=== PATIENT | female | born 1980 | race Caucasian/White ===

== ENCOUNTER → 2018-11-10 | Outpatient (CLI) | payer OTHER ==
[~2018-11-10] MED LIST: AZIT250 PO; Bactrim Ds Tab1 EACH PO; DICL75ER PO; HYDACE5 PO; HYDROXYCUT; METF500C; MULVITMINE; Norco 5-325 Ta1 EACH PO; Percocet 5-3251 EACH PO; SILSUL1TC TOP; TRAM50 PO
== END ==
LOC: LAB SHORT 19:32 → LAB 19:32
DX: L02.811 Cutaneous abscess of head [any part, except face] (principal); L08.9 Local infection of the skin and subcutaneous tissue, unspecified
CPT/HCPCS: 87070; 87077; 87147; 87186; 87205

== ENCOUNTER → 2019-01-18 | Outpatient (CLI) | payer OTHER ==
[~2019-01-18] MED LIST changes: +Keflex500 MG PO
== END | disposition home or self-care (01) ==
LOC: LAB 11:53 → LAB SHORT 11:53
DX: L02.01 Cutaneous abscess of face (principal)
CPT/HCPCS: 87070; 87077; 87147; 87186; 87205

== ENCOUNTER 2019-01-19 17:37 | Emergency (ER) | payer OTHER ==
[~2019-01-19] VITALS: Ht 167.6 cm; Wt 72.6 kg
[~2019-01-19 17:37] MED LIST changes: -Keflex500 MG PO
[2019-01-19 18:19] LABS: BASOPHILS ABSOLUTE AUTO 0.05 K/mm3 (0.00-0.23); BASOPHILS PERCENT AUTO 0 % (0-2); EOSINOPHILS ABSOLUTE AUTO 0.39 K/mm3 (0.00-0.68); EOSINOPHILS PERCENT AUTO 2 % (0-6); Hematocrit 46.6 % (33.0-51.0); Hemoglobin 15.1 g/dL (11.5-16.0); IMMATURE GRAN ABSOLUTE AUTO 0.07 K/mm3 (0.00-0.10); IMMATURE GRAN PERCENT AUTO 0 % (0-1); LYMPHOCYTES ABSOLUTE AUTO 1.79 K/mm3 (0.84-5.20); LYMPHOCYTES PERCENT AUTO 11 % (21-46); MONOCYTES ABSOLUTE AUTO 1.19 K/mm3 (0.16-1.47); MONOCYTES PERCENT AUTO 7 % (4-13); Mean Corpuscular HGB 30.2 pg (26.0-34.0); Mean Corpuscular HGB Conc 32.4 g/dL (31.5-36.5); Mean Corpuscular Volume 93 fL (80-100); Mean Platelet Volume 8.5 fL (9.1-12.4); NEUTROPHILS ABSOLUTE AUTO 13.57 K/mm3 (1.96-9.15); NEUTROPHILS PERCENT AUTO 80 % (41-73); Platelet Count 324 K/mm3 (150-400); RDW Coefficient Variation 13.1 % (11.7-14.2); RDW Standard Deviation 44.7 fL (35.1-46.3); White Blood Cell Count 17.06 K/mm3 (4.00-11.30)
[2019-01-19 18:42] LABS: Alanine Aminotransfer (ALT/SGP 44 U/L (12-78); Albumin, Blood 3.5 g/dL (3.4-5.0); Albumin/Globulin Ratio 0.8 (0.8-1.8); Alk Phos 75 U/L (50-136); Anion Gap 6 mmol/L (6-16); Aspartate Aminotrans (AST/SGOT 24 U/L (12-37); Bilirubin, Total 0.6 mg/dL (0.1-1.0); Blood Urea Nitrogen 7 mg/dL (8-24); Bun/Creatinine Ratio 10.8 (12.0-20.0); CO2, Blood 28 mmol/L (21-32); Calcium, Blood 9.4 mg/dL (8.5-10.1); Chloride, Blood 103 mmol/L (98-108); Creatinine, Blood 0.65 mg/dL (0.40-1.00); Globulin, Blood 4.4 g/dL (2.2-4.0); Glomerular Filtration Rate >60 (60-); Glucose, Blood 97 mg/dL (70-99); Potassium, Blood 3.6 mmol/L (3.5-5.5); Sodium, Blood 137 mmol/L (136-145); Total Protein, Blood 7.9 g/dL (6.4-8.2)
[2019-01-19] MEDS ORDERED: Keflex500 MG PO (20:48)
== END 2019-01-19 20:58 | disposition home or self-care (01) ==
LOC: ER 17:37
PROVIDERS: Physician Assistant
DX: L03.211 Cellulitis of face (principal); K13.0 Diseases of lips; L08.9 Local infection of the skin and subcutaneous tissue, unspecified; F17.200 Nicotine dependence, unspecified, uncomplicated; Z88.0 Allergy status to penicillin
CPT/HCPCS: 36415; 80053; 85025; 96365; 96366; 96375; 99283-25; J1885; J2020; J2270; J2405

== ENCOUNTER 2019-03-21 04:49 | Emergency (ER) | payer OTHER ==
[~2019-03-21] VITALS: Ht 160 cm; Wt 61.2 kg
[~2019-03-21 04:49] MED LIST changes: +Keflex500 MG PO
[2019-03-21] MEDS ORDERED: CLIN300 PO (06:32)
[2019-03-21] MEDS ORDERED: IBUP600 PO (06:32)
== END 2019-03-21 07:15 | disposition home or self-care (01) ==
LOC: ER 04:49
DX: J02.9 Acute pharyngitis, unspecified (principal); H66.92 Otitis media, unspecified, left ear; F17.200 Nicotine dependence, unspecified, uncomplicated; Z88.0 Allergy status to penicillin
CPT/HCPCS: 96372; 99282-25; J1100; J1885

== ENCOUNTER 2019-03-22 12:43 | Inpatient (IN) | payer OTHER ==
[~2019-03-22] VITALS: Ht 160 cm; Wt 72.3 kg
[~2019-03-22 12:43] MED LIST changes: +CLIN300 PO; +IBUP600 PO
[2019-03-22 13:29] LABS: BASOPHILS ABSOLUTE AUTO 0.05 K/mm3 (0.00-0.23); BASOPHILS PERCENT AUTO 0 % (0-2); EOSINOPHILS ABSOLUTE AUTO 0.07 K/mm3 (0.00-0.68); EOSINOPHILS PERCENT AUTO 0 % (0-6); Hematocrit 45.4 % (33.0-51.0); Hemoglobin 15.2 g/dL (11.5-16.0); IMMATURE GRAN ABSOLUTE AUTO 0.07 K/mm3 (0.00-0.10); IMMATURE GRAN PERCENT AUTO 0 % (0-1); LYMPHOCYTES ABSOLUTE AUTO 2.39 K/mm3 (0.84-5.20); LYMPHOCYTES PERCENT AUTO 12 % (21-46); MONOCYTES ABSOLUTE AUTO 1.56 K/mm3 (0.16-1.47); MONOCYTES PERCENT AUTO 8 % (4-13); Mean Corpuscular HGB 30.3 pg (26.0-34.0); Mean Corpuscular HGB Conc 33.5 g/dL (31.5-36.5); Mean Corpuscular Volume 91 fL (80-100); Mean Platelet Volume 8.2 fL (9.1-12.4); NEUTROPHILS ABSOLUTE AUTO 15.39 K/mm3 (1.96-9.15); NEUTROPHILS PERCENT AUTO 79 % (41-73); Platelet Count 425 K/mm3 (150-400); RDW Coefficient Variation 12.3 % (11.7-14.2); RDW Standard Deviation 41.1 fL (35.1-46.3); Red Blood Cell Count 5.01 M/mm3 (3.80-5.20); White Blood Cell Count 19.53 K/mm3 (4.00-11.30)
[2019-03-22 13:47] LABS: Alanine Aminotransfer (ALT/SGP 18 U/L (12-78); Albumin, Blood 3.5 g/dL (3.4-5.0); Albumin/Globulin Ratio 0.7 (0.8-1.8); Alk Phos 86 U/L (50-136); Anion Gap 8 mmol/L (6-16); Aspartate Aminotrans (AST/SGOT 6 U/L (12-37); Bilirubin, Total 0.7 mg/dL (0.1-1.0); Blood Urea Nitrogen 12 mg/dL (8-24); Bun/Creatinine Ratio 16.4 (12.0-20.0); CO2, Blood 26 mmol/L (21-32); Calcium, Blood 9.3 mg/dL (8.5-10.1); Chloride, Blood 104 mmol/L (98-108); Creatinine, Blood 0.73 mg/dL (0.40-1.00); Globulin, Blood 4.8 g/dL (2.2-4.0); Glomerular Filtration Rate >60 (60-); Glucose, Blood 107 mg/dL (70-99); Potassium, Blood 3.2 mmol/L (3.5-5.5); Sodium, Blood 138 mmol/L (136-145); Total Protein, Blood 8.3 g/dL (6.4-8.2)
--- NOTE | 2019-03-22 16:53 | NUR ---
RECIEVED REPORT FROM HALLE JASSO RN, AT 1648. PATIENT TO TRANSFER TO ROOM 301.
[2019-03-22 18:23] LABS: Source, Urine Catheter
[2019-03-22 18:29] LABS: Bilirubin, Urine Neg (Neg); Blood, Urine Neg (Neg); Glucose Qualitative, Urine Neg (Neg); Ketones, Urine 4+ (Neg); Leukocyte Esterase, Urine 1+ (Neg); Nitrite, Urine Neg (Neg); Protein, Urine Neg (Neg); Urobilinogen, Urine NORM (Normal)
[2019-03-22 18:33] LABS: Appearance, Urine Clear (Clear); Color, Urine Yellow (P-Yellow)
[2019-03-22 18:36] LABS: Red Blood Cells, Urine 0-2 /hpf (0-2); Squamous Epithelial Cells Mod /hpf (Few)
[2019-03-22 18:37] LABS: Trichomonas Few /hpf
[2019-03-22 18:38] LABS: Bacteria Few /hpf
[2019-03-22 18:44] LABS: U Amphetamine Screen DETECTED; U Barbituate Screen Not Detected; U Benzodiazapine Screen Not Detected; U Buprenorphine Screen Not Detected; U Cannabinoids Screen DETECTED; U Cocaine Screen Not Detected; U Methadone Screen Not Detected; U Methamphetamine Screen DETECTED; U Opiates Screen Not Detected; U Oxycodone Screen Not Detected; U Phencyclidine Screen Not Detected; U Propoxyphene Screen Not Detected
--- NOTE | 2019-03-22 19:17 | NUR ---
COMPLETED ADMIT ASSESSMENT AND H&P. PATIENT STATES SHE DOESNT TAKE HOME MEDS. CULTURES OF WOUNDS, URINE AND NARES COLLECTED AND SENT TO THE LAB. DIET ORDERS CHANGED TO FULL LIQUID D/T PATIENTS SORE THROAT. REPORT GIVEN TO XOCHITL MAHMOOD, WHO WILL RESUME CARE.
--- NOTE | 2019-03-22 23:30 | NUR ---
PT IS COOPERATIVE WITH CARE, ANXIOUS REGARDING THROAT PAIN. TREATED PER EMAR. FLUIDS RUNNING AT 125/HR ABX RUNING PRESENLTY.
--- NOTE | 2019-03-22 23:59 | NUR ---
PT ABX FINISHED. PT REQUESTS NS 125/HR FLUIDS BE STOPPED SO SHE MAY GO OUTSIDE TO SMOKE.
--- NOTE | 2019-03-23 00:01 | NUR ---
NICOTINE PATCH REMOVED FORM PT'S L SHOULDER. SHE IS GOING OUTSIDE TO SMOKE.
[2019-03-23 05:38] LABS: BASOPHILS ABSOLUTE AUTO 0.03 K/mm3 (0.00-0.23); BASOPHILS PERCENT AUTO 0 % (0-2); EOSINOPHILS ABSOLUTE AUTO 0.02 K/mm3 (0.00-0.68); EOSINOPHILS PERCENT AUTO 0 % (0-6); Hematocrit 38.1 % (33.0-51.0); Hemoglobin 11.9 g/dL (11.5-16.0); IMMATURE GRAN ABSOLUTE AUTO 0.08 K/mm3 (0.00-0.10); IMMATURE GRAN PERCENT AUTO 0 % (0-1); LYMPHOCYTES PERCENT AUTO 12 % (21-46); MONOCYTES ABSOLUTE AUTO 1.37 K/mm3 (0.16-1.47); MONOCYTES PERCENT AUTO 7 % (4-13); Mean Corpuscular HGB 29.5 pg (26.0-34.0); Mean Corpuscular HGB Conc 31.2 g/dL (31.5-36.5); Mean Platelet Volume 8.3 fL (9.1-12.4); NEUTROPHILS ABSOLUTE AUTO 15.42 K/mm3 (1.96-9.15); NEUTROPHILS PERCENT AUTO 80 % (41-73); Platelet Count 391 K/mm3 (150-400); RDW Coefficient Variation 12.4 % (11.7-14.2); RDW Standard Deviation 43.2 fL (35.1-46.3); Red Blood Cell Count 4.04 M/mm3 (3.80-5.20); White Blood Cell Count 19.32 K/mm3 (4.00-11.30)
[2019-03-23 05:44] LABS: Mean Corpuscular Volume 94 fL (80-100)
[2019-03-23 06:01] LABS: Alanine Aminotransfer (ALT/SGP 16 U/L (12-78); Albumin, Blood 2.5 g/dL (3.4-5.0); Albumin/Globulin Ratio 0.6 (0.8-1.8); Alk Phos 68 U/L (50-136); Anion Gap 5 mmol/L (6-16); Aspartate Aminotrans (AST/SGOT 12 U/L (12-37); Bilirubin, Total 0.4 mg/dL (0.1-1.0); Blood Urea Nitrogen 7 mg/dL (8-24); Bun/Creatinine Ratio 13.5 (12.0-20.0); CO2, Blood 25 mmol/L (21-32); Calcium, Blood 8.7 mg/dL (8.5-10.1); Chloride, Blood 110 mmol/L (98-108); Creatinine, Blood 0.52 mg/dL (0.40-1.00); Glomerular Filtration Rate >60 (60-); Glucose, Blood 115 mg/dL (70-99); Potassium, Blood 4.1 mmol/L (3.5-5.5); Sodium, Blood 140 mmol/L (136-145); Total Protein, Blood 6.5 g/dL (6.4-8.2)
--- NOTE | 2019-03-23 06:27 | NUR ---
NOC SHIFT SUMMARY PT IS PLEASANT AND COOPERATIVE WITH CARE THOUGH SHE IS ANXIOUS ABOUT HER CONDITION. IT HAS BEEN EXPLAINED TO HER THE NECESSITY FOR ABX AND FLUID REPLACEMENT AND SHE VERBALIZED UNDERSTANDING. SHE HAS SLEPT ON AND OFF THROUGH THE NIGHT. TREATED FOR THROAT PAIN PER EMAR. VSS. NO COMPLAINTS OF SOB. SPEAKS IN FULL SENTENCES. PRESENTLY SLEEPING AND APPEARS IN NO ACUTE DISTRESS. WILL CONTINUE TO MONITOR.
--- NOTE | 2019-03-23 17:24 | NUR ---
SUMMARY PT AWAKE IN BED VISITING WITH HER SIGNIFICANT OTHER, PT HAS BEEN COOPERATIVE WITH CARE, INDEPENDENT IN THE ROOM, UP TO WALK IN THE HALLS A FEW TIMES, PT MED PER EMAR FOR C/O SORE THROAT, DR BRADY IN TO SEE THE PT AND DID A BEDSIDE SCOPE TO LOOK AT HER THROAT, PT DID NOT TOLERATE THE SCOPE NASALLY DESPITE LIDOCAINE AND AFRIN ADMINISTRATION, DR BRADY WAS ABLE TO ADVANCE THE SCOPE ORALLY AND PT MIK WELL, VSS, NO ACUTE CHANGES, WILL CONT TO MONITOR
[2019-03-23 17:40] LABS: Vancomycin, Trough 11.2 ug/mL (5.0-10.0)
--- NOTE | 2019-03-23 19:49 | NUR ---
PT SL TO GO OUTSIDE TO SMOKE. DENIES NEEDS AT THIS TIME.
--- NOTE | 2019-03-23 22:10 | NUR ---
DECADRON IV RECIEVED THEN IV BEGAN LEAKING SHORTLY AFTER SO WAS DC'D AT 2205. ATTEMPTED TO PLACE NEW IV BUT PT IS DIFFICULT IV START D/T HX IV DRUG USE. CAPACITY MANAGEMENT SPECIALIST'S AWARE OF IV NEEDED FOR UPCOMING ABX AND PRN PAIN MEDS.
--- NOTE | 2019-03-23 23:57 | NUR ---
NO IV ACCESS AFTER FAILED ATTEMPTS AND PREVIOUS IV BEGAN LEAKING. CONCRETE ENGINEERING TECHNICIAN PLANS TO ATTEMPT W/US MACHINE WHEN AVAILABLE BUT IV ABX ARE LATE RESULT.
--- NOTE | 2019-03-24 02:10 | NUR ---
NEW 20G IV PLACED TO L.FA/L.WRIST BY MUSIC LEADER AND CLINDAMYCIN COMMENCED AT THIS TIME. PT WAS RESTING W/O S/S DISTRESS AND DENIED NEEDING PRN PAIN MEDS.
--- NOTE | 2019-03-24 05:44 | NUR ---
SUMMARY: A/OX4, INDEPENDENT IN ROOM AND CALLS APPROPRIATELY TO SPECIFY NEEDS. PT'S BOYFRIEND REMAINS AT BEDSIDE. MANY SNACKS PROVIDED. SHE WENT TO SMOKE ONCE THIS SHIFT DESPITE REQUESTING PAIN MEDS A FEW TIMES FOR SORE THROAT DURING NOCTE. SHE WAS ASLEEP AND DROWSY WHEN ATTEMPTING TO GIVE THEM AND PT ADMITTED TO USING MOUTH SPRAY PRN FOR TOLERABLE EFFECT. HER IV ALSO BEGAN LEAKING SHORTLY AFTER RETURNING FROM SMOKING. SHE'S A DIFFICULT IV START D/T HX IV DRUG USE AND NEW IV PLACEMENT TOOK TIME TO OBTAIN AFTER MULTIPLE FAILED ATTEMPTS BY VARIOUS RN'S. NEW IV PLACED TO L.WRIST BY PATIENT COORDINATOR FRONT DESK, IV ABX RECIEVED LATE RESULT. NO ACUTE CHANGES, VSS/AFEBRILE. WCTM AND REPORT TO DAY RN.
[2019-03-24 18:01] LABS: Vancomycin, Trough 9.5 ug/mL (5.0-10.0)
--- NOTE | 2019-03-24 18:20 | NUR ---
SUMMARY PT NOT IN HER ROOM AT THIS TIME, SIGNIFICANT OTHER STATES SHE WILL BE RIGHT BACK, PT HAS BEEN COOPERATIVE WITH CARE T/O THE DAY, MED PER EMAR FOR PAIN, VSS, NO ACUTE CHANGES, WILL CONT TO MONITOR
--- NOTE | 2019-03-24 18:46 | NUR ---
MORA SPOKE WITH SECURITY AND MANAGER COMMERCIAL SALES ABOUT THE PT BEING GONE, SECURITY FOOTAGE SHOWED THE PT LEAVING THE HOSPITAL AND GETTING IN A VAN, CALLED NURSING DERRICK HAND AND DR TEJADA, PT MORA DISCHARGED, PT'S SIGNIFICANT OTHER TOOK THE BELONGINGS
--- NOTE | 2019-03-24 21:13 | NUR ---
AMA PT LEFT BEFORE SHIFT CHANGE AND HAD BEEN GONE FOR OVER AND HOUR. PER POLICY DAYSHIFT RN DC'D PT AMA, FOR GETTING IN THE CAR AND LEAVING HOSPITAL PRIMISES PER DAYSHIFT RN REPORT. PT CAME BACK A SHORT TIME AFTER CHANGE OF SHIFT. SHE WAS CONFUSED TO WHY SHE HAD TO BE DISCHARGED, AND STATED THAT SHE JUST WENT TO THE STORE AND THOUGHT IT WAS OK TO LEAVE AND THAT SHE DID NOT KNOW. DAYSHIFT JORDAN MAN AND NOC RN AWARE THAT PT HAD RETURN AND STATES TO PROCEED WITH SENDING PT HOME. AMA FORM SIGNED BY PT AND IV REMOVED. PT WAS STRONGLY ENCOURAGED BY THIS RN TO RETURN TO THE ER, SO THAT SHE CAN RESUME TREATMENT FOR HER INFECTION. PT STATED THAT SHE WOULD DO SO.
== END 2019-03-24 18:46 | disposition left against medical advice (07) | DRG 872 ==
LOC: ER 12:43 → MEDS 12:44
PROVIDERS: Physician Assistant; ADMIT Family Medicine
DX: A41.9 Sepsis, unspecified organism (principal); F17.210 Nicotine dependence, cigarettes, uncomplicated; E87.6 Hypokalemia; Z86.14 Personal history of Methicillin resistant Staphylococcus aureus infection; J02.9 Acute pharyngitis, unspecified; Z88.0 Allergy status to penicillin; R82.5 Elevated urine levels of drugs, medicaments and biological substances; Z53.29 Procedure and treatment not carried out because of patient's decision for other reasons
CPT/HCPCS: 36415; 36416; 70491; 71045; 80053; 80202; 81001; 83605; 85025; 87081; 87430; 96361-59; 96365-59; 96375; 99285-25; A9270; C9113; G0378; J1100; J1885; J2001; J2405; J3010; J3370; J3480; J7030; J7050; Q9967

== ENCOUNTER 2020-07-03 22:56 | Emergency (ER) | payer OTHER ==
[~2020-07-03] VITALS: Ht 160 cm; Wt 68.0 kg
== END 2020-07-03 23:08 | disposition left against medical advice (07) ==
LOC: ER 22:56
DX: T40.1X1A Poisoning by heroin, accidental (unintentional), initial encounter (principal); F17.200 Nicotine dependence, unspecified, uncomplicated; Z88.0 Allergy status to penicillin
CPT/HCPCS: 93005; 93010; 99284-25

== ENCOUNTER 2021-05-03 01:06 | Emergency (ER) | payer OTHER ==
[~2021-05-03] VITALS: Ht 162.6 cm; Wt 65.8 kg
== END 2021-05-03 06:23 | disposition home or self-care (01) ==
LOC: ER 01:06
DX: J98.9 Respiratory disorder, unspecified (principal); B34.9 Viral infection, unspecified; F17.210 Nicotine dependence, cigarettes, uncomplicated; Z88.0 Allergy status to penicillin
CPT/HCPCS: 99283; A9270

== ENCOUNTER 2021-08-22 23:38 | Emergency (ER) | payer SELFPAY ==
[~2021-08-22] VITALS: Ht 157.5 cm; Wt 70.3 kg
== END 2021-08-23 02:52 | disposition home or self-care (01) ==
LOC: ER 23:38
DX: B34.9 Viral infection, unspecified (principal); M79.18 Myalgia, other site; F17.210 Nicotine dependence, cigarettes, uncomplicated; Z88.0 Allergy status to penicillin
CPT/HCPCS: 99282

== ENCOUNTER 2021-08-29 01:09 | Emergency (ER) | payer SELFPAY ==
[~2021-08-29] VITALS: Ht 157.5 cm; Wt 68.0 kg
[2021-08-29] MEDS ORDERED: Zithromax250 MG PO (03:05)
[2021-08-29] MEDS ORDERED: Prednisone20 MG PO (03:05)
== END 2021-08-29 03:19 | disposition home or self-care (01) ==
LOC: ER 01:09
DX: J44.1 Chronic obstructive pulmonary disease with (acute) exacerbation (principal); F17.210 Nicotine dependence, cigarettes, uncomplicated; Z88.0 Allergy status to penicillin
CPT/HCPCS: 71046; 94640; 94664; A9270; J7512

== ENCOUNTER 2021-12-13 07:53 | Emergency (ER) | payer OTHER ==
[~2021-12-13] VITALS: Ht 162.6 cm; Wt 59.0 kg
[~2021-12-13 07:53] MED LIST changes: +Prednisone20 MG PO; +Zithromax250 MG PO
[2021-12-13] MEDS ORDERED: Norco 7.5-3251 EACH PO (08:24)
[2021-12-13] MEDS ORDERED: AMOCLA875 PO (08:24)
== END 2021-12-13 08:33 | disposition home or self-care (01) ==
LOC: ER 07:53
DX: K04.7 Periapical abscess without sinus (principal); F17.210 Nicotine dependence, cigarettes, uncomplicated
CPT/HCPCS: A9270

== ENCOUNTER 2022-01-10 23:32 | Emergency (ER) | payer OTHER ==
[~2022-01-10] VITALS: Ht 160 cm; Wt 72.6 kg
[~2022-01-10 23:32] MED LIST changes: +AMOCLA875 PO; +Norco 7.5-3251 EACH PO
[2022-01-11] MEDS ORDERED: CLIN300 PO (00:22)
== END 2022-01-11 00:53 | disposition home or self-care (01) ==
LOC: ER 23:32
DX: K02.9 Dental caries, unspecified (principal); K04.7 Periapical abscess without sinus; K05.10 Chronic gingivitis, plaque induced; F17.210 Nicotine dependence, cigarettes, uncomplicated; Z88.0 Allergy status to penicillin
CPT/HCPCS: 99282; A9270

== ENCOUNTER 2022-04-09 04:17 | Emergency (ER) | payer OTHER ==
[~2022-04-09] VITALS: Ht 160 cm; Wt 72.6 kg
[~2022-04-09 04:17] MED LIST changes: +ONDA4ODT MM
[2022-04-09] MEDS ORDERED: ONDA4ODT MM (04:53)
== END 2022-04-09 04:59 | disposition home or self-care (01) ==
LOC: ER 04:17
DX: Z02.79 Encounter for issue of other medical certificate (principal); B34.9 Viral infection, unspecified; F17.210 Nicotine dependence, cigarettes, uncomplicated; Z88.0 Allergy status to penicillin
CPT/HCPCS: 99282

== ENCOUNTER 2022-06-01 07:11 | Emergency (ER) | payer OTHER ==
[~2022-06-01] VITALS: Ht 160 cm; Wt 68.0 kg
== END 2022-06-01 07:40 | disposition home or self-care (01) ==
LOC: ER 07:11
DX: L98.9 Disorder of the skin and subcutaneous tissue, unspecified (principal); B95.62 Methicillin resistant Staphylococcus aureus infection as the cause of diseases classified elsewhere; F17.210 Nicotine dependence, cigarettes, uncomplicated; Z88.0 Allergy status to penicillin
CPT/HCPCS: 99281

== ENCOUNTER 2022-06-14 07:20 | Emergency (ER) | payer OTHER ==
[~2022-06-14] VITALS: Ht 167.6 cm; Wt 68.0 kg
[2022-06-14 08:03] VITALS: BP 112/82
[2022-06-14] MEDS ORDERED: Permethrin60 GM TOP (08:37)
[2022-06-14] MEDS ORDERED: Bactrim Ds Tab1 EACH PO (08:37)
== END 2022-06-14 08:48 | disposition home or self-care (01) ==
LOC: ER 07:20
DX: B86 Scabies (principal); L08.89 Other specified local infections of the skin and subcutaneous tissue; F17.210 Nicotine dependence, cigarettes, uncomplicated; Z88.1 Allergy status to other antibiotic agents
CPT/HCPCS: 99282

== ENCOUNTER 2022-11-26 09:15 | Emergency (ER) | payer OTHER ==
[~2022-11-26] VITALS: Ht 165.1 cm; Wt 79.4 kg
[~2022-11-26 09:15] MED LIST changes: +Permethrin60 GM TOP
[2022-11-26 09:28] VITALS: BP 117/76
== END 2022-11-26 09:36 | disposition home or self-care (01) ==
LOC: ER 09:15
DX: U07.1 COVID-19 (principal); F17.210 Nicotine dependence, cigarettes, uncomplicated; Z88.0 Allergy status to penicillin
CPT/HCPCS: 99284

== ENCOUNTER 2022-12-03 07:01 | Emergency (ER) | payer OTHER ==
[~2022-12-03] VITALS: Ht 160 cm; Wt 72.6 kg
[2022-12-03 07:15] VITALS: BP 143/92
== END 2022-12-03 07:51 | disposition home or self-care (01) ==
LOC: ER 07:01
DX: U07.1 COVID-19 (principal); F17.210 Nicotine dependence, cigarettes, uncomplicated; Z88.0 Allergy status to penicillin
CPT/HCPCS: 99283

== ENCOUNTER 2022-12-18 06:37 | Emergency (ER) | payer OTHER ==
[~2022-12-18] VITALS: Ht 162.6 cm; Wt 72.6 kg
[2022-12-18 07:47] VITALS: BP 125/65
== END 2022-12-18 07:48 | disposition home or self-care (01) ==
LOC: ER 06:37
DX: U07.1 COVID-19 (principal); F17.200 Nicotine dependence, unspecified, uncomplicated; Z88.0 Allergy status to penicillin
CPT/HCPCS: 99283

== ENCOUNTER 2024-06-06 18:26 | Emergency (ER) | payer OTHER ==
[~2024-06-06] VITALS: Ht 162.6 cm; Wt 72.6 kg
[2024-06-06 18:43] VITALS: BP 138/83
[2024-06-06 20:36] LABS: BASOPHILS ABSOLUTE AUTO 0.03 K/mm3 (0.00-0.23); BASOPHILS PERCENT AUTO 0 % (0-2); EOSINOPHILS PERCENT AUTO 3 % (0-6); Hematocrit 37.6 % (33.0-51.0); Hemoglobin 12.2 g/dL (11.5-16.0); IMMATURE GRAN ABSOLUTE AUTO 0.02 K/mm3 (0.00-0.10); IMMATURE GRAN PERCENT AUTO 0 % (0-1); LYMPHOCYTES ABSOLUTE AUTO 1.67 K/mm3 (0.84-5.20); LYMPHOCYTES PERCENT AUTO 16 % (21-46); MONOCYTES ABSOLUTE AUTO 0.73 K/mm3 (0.16-1.47); MONOCYTES PERCENT AUTO 7 % (4-13); Mean Corpuscular HGB 29.2 pg (26.0-34.0); Mean Corpuscular HGB Conc 32.4 g/dL (31.5-36.5); Mean Corpuscular Volume 90 fL (80-100); Mean Platelet Volume 8.8 fL (9.1-12.4); NEUTROPHILS ABSOLUTE AUTO 8.04 K/mm3 (1.96-9.15); NEUTROPHILS PERCENT AUTO 74 % (41-73); Platelet Count 311 K/mm3 (150-400); RDW Coefficient Variation 13.2 % (11.7-14.2); RDW Standard Deviation 43.1 fL (35.1-46.3); Red Blood Cell Count 4.18 M/mm3 (3.80-5.20); White Blood Cell Count 10.79 K/mm3 (4.00-11.30)
[2024-06-06 21:08] LABS: Free Thyroxine 1.2 ng/dL (0.70-1.60)
[2024-06-06 21:11] LABS: Albumin, Blood 3.5 g/dL (3.4-5.0); Bilirubin, Total 0.4 mg/dL (0.1-1.0); Creatinine, Blood 0.56 mg/dL (0.40-1.00); Globulin, Blood 3.6 g/dL (2.2-4.0); Potassium, Blood 3.5 mmol/L (3.5-5.5); Thyroid Stimulating Hormone 0.922 uIU/mL (0.360-4.800); Total Protein, Blood 7.1 g/dL (6.4-8.2)
[2024-06-06] MEDS ORDERED: CEPH500 PO (21:55)
[2024-06-06] MEDS ORDERED: SULTRIDS PO (21:55)
== END 2024-06-06 22:11 | disposition home or self-care (01) ==
LOC: ER 18:26
PROVIDERS: Student in an Organized Health Care Education/Training Program
DX: L03.011 Cellulitis of right finger (principal); F17.210 Nicotine dependence, cigarettes, uncomplicated; Z88.0 Allergy status to penicillin
CPT/HCPCS: 80053; 83880; 84439; 84443; 85025; 85651; 99284